=== PATIENT | male | born 1980 | race Caucasian/White ===

== ENCOUNTER 2023-09-13 17:12 | Emergency (ER) | payer OTHER, MEDICAID, SELFPAY ==
[2023-09-13 17:20] VITALS: BP 127/64; PULSE 88; RESP 18; TEMP 36.7; O2SAT 100; BMI 23.7
== END 2023-09-13 18:44 | disposition left against medical advice (07) ==
PROVIDERS: Emergency Provider Emergency Medicine
CPT/HCPCS: 99281

== ENCOUNTER 2024-09-18 11:24 | Emergency (ER) | payer OTHER, SELFPAY ==
[2024-09-18 11:26] VITALS: BP 118/77; PULSE 68; RESP 16; TEMP 36.2; O2SAT 100; BMI 31.1
--- NOTE | 2024-09-18 11:32 | ED_ITS ---
HPI - Eye Problem <Yeny Aguilar PA-C - Last Filed: 09/18/24 12:34> General Chief complaint: Eye Problems Stated complaint: foreign object in eye Time Seen by Provider: 09/18/24 11:31 History of Present Illness HPI Narrative: 44-year-old male presents this morning for right eye discomfort. He was chopping wood with a hatchet when a piece of wood flew up into his face striking his right eye. He closed his eyes quickly but he felt it still impact of the ey e. He does not wear contact lenses or prescription glasses, he reports keeping the eye closed while driving to get here. He is experiencing some mild discomfort. He is denying any other injuries, no headache, no known sensitivity to light, no prior history of any eye disease, he believes his tetanus is up-to-date as of a couple years ago when he cut his finger. All other systems are reviewed and are negative. Related Data Previous Rx's Medication Instructions Recorded erythromycin 5 mg/gram (0.5 %) eye 0.5 inch EYE-RIGHT QID 5 days #3.5 09/18/24 ointment grams Allergies Allergy/AdvReac Type Severity Reaction Status Date / Time No Known Drug Allergies Allergy Verified 09/13/23 17:20 Review of Systems <Yeny Aguilar PA-C - Last Filed: 09/18/24 12:34> Review of Systems Narrative: All other systems reviewed and are negative. Patient History <Yeny Aguilar PA-C - Last Filed: 09/18/24 12:34> Social History Smoking Status: Current every day smoker Smoking Status: Current every day smoker tobacco type: cigarettes alcohol intake frequency: other Exam <Yeny Aguilar PA-C - Last Filed: 09/18/24 12:34> Initial Vital Signs Initial Vital Signs: Vital Signs Temperature 97.1 F L 09/18/24 11:26 Pulse Rate 68 09/18/24 11:26 Respiratory Rate 16 09/18/24 11:26 Blood Pressure 118/77 09/18/24 11:26 Pulse Oximetry 100 09/18/24 11:26 Oxygen Delivery Method Room Air 09/18/24 11:26 Vital signs reviewed and are normal. Const General: cooperative, comfortable, well developed and No acute distress Other: Alert and oriented x4, pleasantly conversing. [facility] Head: normocephalic, No hematoma, No laceration, No scalp tenderness, No periorbital ecchymosis and other (Mild maroon discoloration inferior to his right lower eyelid. ) Nose: external nose normal Mouth: oral mucosae normal, lip normal and tongue normal [facility] Other: No focal tenderness periorbitally, no bony tenderness, mild tenderness at the site of his lower eyelid, no guarding. Eyes Visual Ledezma: normal visual ledezma by confrontation Alignment and Position: alignment normal and position normal Periorbital: periorbital findings normal Eyelids: other (Upper lid everted, no foreign body, no trauma, tissues are nor mal) Conjunctivae: other (Mild injection) Cornea: fluorescein used Pupils: PERRL and normal by confrontation EOM: EOM intact bilaterally Other: Fluorescein exam reveals uptake involving sclera between 3 o'clock and 6 o'clock, large patch measuring approximately 1 cm irregularly shaped, no foreign body seen, Vicente's is negative, Slit Lamp magnification: I do not appreciate any retained foreign body, cornea appears intact, there is a faint abrasion at the base around 6 o'clock. Exam tolerated. Patient declined Allen-Pen. Neck Neck: normal visual inspection and full ROM <Kathleen Gastelum MD - Last Filed: 09/18/24 15:18> Initial Vital Signs Initial Vital Signs: Vital Signs Temperature 97.1 F L 09/18/24 11:26 Pulse Rate 68 09/18/24 11:26 Respiratory Rate 16 09/18/24 11:26 Blood Pressure 118/77 09/18/24 11:26 Pulse Oximetry 100 09/18/24 11:26 Oxygen Delivery Method Room Air 09/18/24 11:26 Course <Yeny Aguilar PA-C - Last Filed: 09/18/24 12:34> Orders Ordered: Discontinued Medications Erythromycin (Erythromycin Ophth 1 Gm Oint) 1 applic EYE-RIGHT NOW ONE Stop: 09/18/24 11:58 Last Admin: 09/18/24 12:03 Dose: 1 applic Documented By: MEE Fluorescein Sodium (Fluorescein 1 Mg Strip) 1 mg EYE-RIGHT NOW ONE Stop: 09/18/24 11:33 Last Admin: 09/18/24 11:35 Dose: 1 mg Documented By: MEE Proparacaine HCl (Proparacaine 0.5% Ophth Avis) 1 drops EYE-RIGHT NOW ONE Stop: 09/18/24 11:33 Last Admin: 09/18/24 11:35 Dose: 1 drop Documented By: MEE Vital Signs Vital signs: Vital Signs - 8 hr 09/18/24 11:26 Temperature 97.1 F L Pulse Rate 68 Respiratory Rate 16 Blood Pressure 118/77 Pulse Oximetry 100 Oxygen Delivery Method Room Air <Kathleen Gastelum MD - Last Filed: 09/18/24 15:18> Orders Ordered: Discontinued Medications Erythromycin (Erythromycin Ophth 1 Gm Oint) 1 applic EYE-RIGHT NOW ONE Stop: 09/18/24 11:58 Last Admin: 09/18/24 12:03 Dose: 1 applic Documented By: MEE Fluorescein Sodium (Fluorescein 1 Mg Strip) 1 mg EYE-RIGHT NOW ONE Stop: 09/18/24 11:33 Last Admin: 09/18/24 11:35 Dose: 1 mg Documented By: MEE Proparacaine HCl (Proparacaine 0.5% Ophth Avis) 1 drops EYE-RIGHT NOW ONE Stop: 09/18/24 11:33 Last Admin: 09/18/24 11:35 Dose: 1 drop Documented By: MEE Vital Signs Vital signs: Vital Signs - 8 hr 09/18/24 11:26 Temperature 97.1 F L Pulse Rate 68 Respiratory Rate 16 Blood Pressure 118/77 Pulse Oximetry 100 Oxygen Delivery Method Room Air MDM - Eye Problem <Yeny Aguilar PA-C - Last Filed: 09/18/24 12:34> MDM Narrative Medical decision making narrative: Extensive eye examination reveals what appears to be a superficial injury, no ulceration identified, fluorescein uptake involving about a 1 cm area the inferior eye conjunctiva with mild involvement of the cornea. He had significant relief with the proparacaine. His vision is intact. EOMs reveal no pain elicited. I have dispensed erythromycin ophthalmic ointment as pharmacies are closed this holiday. I have asked him to follow-up with an eye provider, information has been given for this. Red flag warning signs reviewed extensively, seek medical attention immediately if you have any new symptoms or any worsening symptoms. His tetanus is up-to-date. The emergency department is open 17/04. Discharge Plan Departure Patient Disposition: Home Clinical Impression: Corneal abrasion Qualifiers: Encounter type: initial encounter Laterality: right Qualified Code(s): S05.01XA - Injury of conjunctiva and corneal abrasion without foreign body, right eye, initial encounter Abrasion of conjunctiva, right Qualifiers: Encounter type: initial encounter Qualified Code(s): S05.01XA - Injury of conjunctiva and corneal abrasion without foreign body, right eye, initial encounter Contusion of face Qualifiers: Encounter type: initial encounter Qualified Code(s): S00.83XA - Contusion of other part of head, initial encounter Activity Restrictions/Additional Instructions: Please use the antibiotic ointment dispensed, 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 Please avoid touching the eye, wear sunglasses, seek medical attention if your symptoms worsen, you may take Tylenol for pain. You might develop some discoloration within the whites of your eye this is a bruise and not dangerous but if it is painful please do not hesitate to return. You can use a cold compress on the bruise on your face, and again do not hesitate to return to the emergency department if anything changes. I would like you to follow up with an orange picking supervisor of your choosing, I did list when here locally in [place] as well as [place]: [facility] [phone]. Call them in the morning and schedule a follow up appointment. You also can call in the middle the night if you have questions as they are available on-call. Prescriptions: New erythromycin 5 mg/gram (0.5 %) ointment 0.5 inch EYE-RIGHT QID 5 Days Qty: 3.5 0RF Referrals: Carlo Fabian MD [Physician] - (wood debris vs. right eye. Conjunctival and corneal abrasion. ) Miscellaneous,DoctorMD [Primary Care Provider] - Stand Alone Forms: Patient Portal/API/Survey ED Sign-out <Kathleen Gastelum MD - Last Filed: 09/18/24 15:18> Cosign ED Attending Cosignature Attestation: I was immediately available in the department for consultation throughout this patient's visit. Kathleen Gastelum MD
[2024-09-18] MEDS: PROPARACAINE 0.5% OPHTH SOL 1 DROPS EYE-RIGHT (11:35)
[2024-09-18] MEDS: FLUORESCEIN 1 MG STRIP EYE-RIGHT (11:35)
--- NOTE | 2024-09-18 11:50 | PC.NURSE ---
Provider did visual acuity at bedside. Pt eye pain/discomfort lessened with eye drop administration. Pt reports he is up to date on Tetanus immunization.
[2024-09-18] MEDS: ERYTHROMYCIN OPHTH 1 GM OINT 1 APPLIC EYE-RIGHT (12:03)
== END 2024-09-18 12:17 | disposition home or self-care (01) ==
PROVIDERS: Emergency Provider Physician Assistant Medical
DX: S05.01XA Injury of conjunctiva and corneal abrasion without foreign body, right eye, initial encounter (principal); W22.8XXA Striking against or struck by other objects, initial encounter; Y93.89 Activity, other specified
CPT/HCPCS: 99282

== ENCOUNTER 2024-12-21 21:30 | Emergency (ER) | payer OTHER, SELFPAY ==
[2024-12-21 21:32] VITALS: BP 132/74; PULSE 87; RESP 18; TEMP 36.8; O2SAT 98; BMI 23.7
--- NOTE | 2024-12-21 21:41 | DI.RAD.S_ITS ---
PROCEDURE: XR HAND LT MIN 3V INDICATIONS: cut palm of hand TECHNIQUE: 3 views of the hand(s) acquired. COMPARISON: None. FINDINGS: Bones: No fractures or dislocations. Carpal bones are normally aligned. No suspicious bony lesions. Small accessory ossicle adjacent to the ulnar styloid and distal radial ulnar joint. Soft tissues: No suspicious soft tissue calcifications. No radiopaque foreign body. IMPRESSION: No acute bony abnormality. No radiopaque foreign body. Dictated by: Jairo Barnes M.D. on 12/21/2024 at 23:44 Approved by: Jairo Barnes M.D. on 12/21/2024 at 23:46
[2024-12-21 23:40] VITALS: BP 132/81; PULSE 80; O2SAT 98
[2024-12-22] VITALS: BP 127/77; PULSE 74; O2SAT 97
--- NOTE | 2024-12-22 00:16 | ED.WOUNDLAC ---
HPI - Wound/Laceration General Chief Complaint: Wound/Laceration Stated Complaint: hand laceration Time Seen by Provider: 12/21/24 23:46 Source: patient Mode of arrival: Ambulatory History of Present Illness HPI narrative: 44-year-old gentleman no stated medical history was moving some garbage bags round stumbled fell onto the garbage bag and sustained a laceration to the lateral aspect of his palm left hand. It has a 2 cm superficial flap-like laceration. He states his last tetanus shot was in September 17. Bleeding was controlled with pressure. Related Data Previous Rx's Medication Instructions Recorded cephalexin 500 mg capsule 500 mg PO TID #15 caps 12/22/24 Allergies Allergy/AdvReac Type Severity Reaction Status Date / Time No Known Drug Allergies Allergy Verified 09/13/23 17:20 Patient History Social History Smoking Status: Current every day smoker Smoking Status: Current every day smoker tobacco type: cigarettes alcohol intake frequency: other Exam Initial Vital Signs Initial Vital Signs: Vital Signs Temperature 98.3 F 12/21/24 21:32 Pulse Rate 87 12/21/24 21:32 Respiratory Rate 18 12/21/24 21:32 Blood Pressure 132/74 12/21/24 21:32 Pulse Oximetry 98 12/21/24 21:32 Oxygen Delivery Method Room Air 12/21/24 21:32 General: Hyper alert, difficulty sitting still, quite anxious about the wound, Respiratory: Able to speak in full sentences, no obvious respiratory distress Hand: 2 cm flap like laceration lateral aspect of the left hand. Bleeding controlled with pressure. The hand itself is dirty and the bit of glass cut the hand is also dirty. Neurologic: Grossly intact no obvious asymmetries or abnormalities Psych: Slightly pressured speech, difficulty holding still, exceptionally anxious about his wound Procedures Laceration Repair Left hand: Time of procedure: 00:44 Site: hand Side (If applicable): left Size (cm): 2 Description: flap Depth: simple, single layer Local Anesthetic: lidocaine 1% Amount of anesthesia used (mL): 4 Pre-repair: wound explored, irrigated extensively and deep structures intact Skin layer closed with: nylon Skin layer suture size: 4-0 Number of sutures: 3 Technique: horizontal mattress Course Orders Ordered: ED Orders 12/21/24 21:41 XR hand LT min 3V Stat Vital Signs Vital signs: Vital Signs - 8 hr 12/21/24 21:32 12/21/24 23:40 Temperature 98.3 F Pulse Rate 87 80 Respiratory Rate 18 Blood Pressure 132/74 132/81 Pulse Oximetry 98 98 Oxygen Delivery Method Room Air MDM - Wound/Laceration MDM Narrative Medical decision making narrative: 44-year-old gentleman fell into a garbage bag he was carrying and suffered a 2 cm flap like laceration lateral aspect of the left hand. Horizontal mattress sutures are used to close the space in the center of the flap and try to reapproximate the fragile edges. Antibiotic ointment and a nonstick dressing is applied. Bleeding has been controlled. Patient had difficulty holding still for the procedure, for the anesthetic and is soon as the wound was repaired he was up pacing around the room. Dressing was applied without difficulty. He is up-to-date on his tetanus shot. Because his hand was dirty and the bit of last was dirty will recommend 5 days of Keflex. Recommended sutures coming out on or about January 02. X-ray was done did not show obvious foreign body. No underlying bony abnormalities. There has no indication for additional workup or imaging patient is safe for discharge Discharge Plan Departure Patient Disposition: Home Clinical Impression: Laceration Instructions: How to Care for a Laceration After Repair, DI for Laceration Repair Activity Restrictions/Additional Instructions: We are able to non up and then clean out the cut to the side of your hand. The bleeding was controlled with pressure. The wound itself is a rather superficial flap. There is a stitch in the center of the flap to hold it down and then 2 to try to hold the very thin edges down. Keeping the wound voiced for at least the 1st 4 or 5 days and then covered after that will help with healing overall. I would recommend antibiotic ointment and a clean dressing over the wound for the 1st 4-5 days and after that keeping the wound covered we will be helpful. I would recommend the stitches come out on or about January 02. If you have increasing pain, redness drainage or new findings for around the wound, does need to be re-evaluated Because your hand and the glass were both somewhat dirty I am going to recommend 5 days of antibiotics, I have given you a written prescription for cephalexin. The wound was irrigated extensively in the emergency department to try and prevent infection as well Using 400 mg of ibuprofen (2 [id number] pills) and 1 Tylenol every 6 hours can be very helpful in controlling pain. If you find that you are getting worse or develop any new symptoms, please feel free to return to the emergency department for further evaluation. Prescriptions: New cephalexin 500 mg capsule 500 mg PO TID Qty: 15 0RF Referrals: Miscellaneous,Doctor, MD [Primary Care Provider] - Stand Alone Forms: Patient Portal/API/Survey
[2024-12-22] MEDS: BACITRACIN OINT 0.9 GM PCKT 1 APPLIC TOP (00:50)
== END 2024-12-22 00:57 | disposition home or self-care (01) ==
PROVIDERS: Emergency Provider Emergency Medicine
DX: S61.412A Laceration without foreign body of left hand, initial encounter (principal); W26.9XXA Contact with unspecified sharp object(s), initial encounter
CPT/HCPCS: 12001; 73130; 99282; 99283

== ENCOUNTER 2025-05-31 19:08 | Emergency (ER) | payer OTHER, SELFPAY ==
[2025-05-31 19:15] VITALS: BP 133/66; PULSE 75; RESP 16; TEMP 36.6; O2SAT 99; BMI 22.3
--- NOTE | 2025-05-31 20:31 | ED.WOUNDLAC ---
HPI - Wound/Laceration General Chief Complaint: Wound/Laceration Stated Complaint: Lt hand laceration Time Seen by Provider: 05/31/25 20:31 Source: patient Mode of arrival: Ambulatory History of Present Illness HPI narrative: 45-year-old male no pertinent past medical history presents for hand laceration, states he was opening a package with a knife when it slipped cutting his 2nd digit on his left hand, not on any blood thinners, denies any other injuries. Related Data Previous Rx's ?Medication ?Instructions ?Recorded cephalexin 500 mg capsule 500 mg PO Q6H 5 days #20 caps 05/31/25 Allergies Allergy/AdvReac Type Severity Reaction Status Date / Time No Known Drug Allergies Allergy Verified 05/21/25 23:05 Review of Systems Review of Systems Narrative: General: Denies fever, chills, weight loss HEENT: Denies headache, eye drainage, eye irritation, head trauma, sore throat, voice change Cardiovascular: Denies any chest pain, palpitations, tachycardia Respiratory: Denies any shortness of breath, cough, wheeze, stridor GI/: Denies any abdominal pain, nausea, vomiting, diarrhea, bright red blood per rectum, melanotic stools, urinary frequency, urinary retention, dysuria, hematuria MSK: Laceration to left 2nd digit Skin: Denies any rashes, lesions, discoloration Neuro: Denies any headache, lightheadedness, dizziness, fainting, weakness Psych: Denies SI/HI Patient History tobacco type: cigarettes alcohol intake frequency: other Exam Narrative Exam Narrative: General: Cooperative, well-developed, not in acute distress HEENT: Normocephalic, atraumatic, PERRLA, normal sclera, eyelids normal Neck: Active full range of motion, atraumatic Chest: Normal to inspection, negative crepitus, no overlying erythema ecchymosis Respiratory: Normal respiratory effort, not in acute respiratory distress, clear to auscultation bilaterally negative cough, wheeze, tachypnea, rhonchi, rales Cardiology: Regular rate rhythm negative gallop, murmur, rubs GI/: No tenderness to palpation, soft, non rigid, normal to inspection, exam deferred MSK: Full active range of motion in all 4 extremities, atraumatic, no tenderness to palpation of any bony prominences Skin: Patient with a 1 cm laceration to the lateral aspect of the 2nd finger not actively bleeding superficial Neuro: Alert awake oriented x3, moves all 4 extremities spontaneously, cranial nerves intact, able to answer all questions appropriately follows commands appropriately Psych: Cooperative, negative suicidal or homicidal ideations Initial Vital Signs Initial Vital Signs: Vital Signs Temperature 97.8 F 05/31/25 19:15 Pulse Rate 75 05/31/25 19:15 Respiratory Rate 16 05/31/25 19:15 Blood Pressure 133/66 05/31/25 19:15 Pulse Oximetry 99 05/31/25 19:15 Oxygen Delivery Method Room Air 05/31/25 19:15 Procedures Laceration Repair Laceration 1: Time of procedure: 20:51 Site: hand Side (If applicable): left Size (cm): 1 Description: linear Depth: simple, single layer Local Anesthetic: lidocaine 1% Amount of anesthesia used (mL): 3 Pre-repair: wound explored, irrigated extensively and deep structures intact Skin layer closed with: other (Ethilon) Skin layer suture size: 4-0 Number of sutures: 4 Technique: simple, interrupted Course Vital Signs Vital signs: Vital Signs - 8 hr 05/31/25 19:15 Temperature 97.8 F Pulse Rate 75 Respiratory Rate 16 Blood Pressure 133/66 Pulse Oximetry 99 Oxygen Delivery Method Room Air MDM - Wound/Laceration MDM Narrative Medical decision making narrative: Patient is a 45-year-old male who presents for laceration to his left index finger states he was using a pocket knife to open a box cut the lateral aspect of his left index finger patient is right-handed, up-to-date to tetanus, on exam very superficial no involvement of bone and/or tendon, he is neurovascularly intact no indication for imaging, patient had laceration repair performed at bedside, 4 sutures were placed, he will be started on her oral antibiotics for prophylaxis he verbalized understanding and strict return precautions and being discharged home with outpatient follow up Discharge Plan Departure Patient Disposition: Home Clinical Impression: Finger laceration Instructions: DI for Laceration Repair Activity Restrictions/Additional Instructions: Please follow up with your primary care doctor, you have 4 sutures that need to be removed in a proximally 1 week Please read the discharge instructions sheet carefully and bring all papers to all doctor follow-up visits, as it may contain information that your doctor may want to see. Disease processes change and evolve, if your symptoms worsen or if you develop any new symptoms that are concerning to you please return for evaluation. Your evaluation today does not show any evidence of any life-threatening/serious illnesses requiring admission to the hospital or surgery. Please follow-up with your doctor for re-evaluation in approximately 1 day. Seek immediate medical attention for any worrisome symptoms. *If you do not have a primary care provider please contact the [facility] Resource line at [phone]. They will ask some questions about your medical history and help get you set up with a doctor in the community. Prescriptions: New cephalexin 500 mg capsule 500 mg PO Q6H 5 Days Qty: 20 0RF Referrals: Miscellaneous,Doctor, [Primary Care Provider, Medical] Stand Alone Forms: Patient Portal/API
[2025-05-31 21:06] VITALS: BP 127/81; PULSE 75; RESP 18; O2SAT 96
== END 2025-05-31 21:08 | disposition home or self-care (01) ==
PROVIDERS: Emergency Provider Student in an Organized Health Care Education/Training Program
DX: S61.211A Laceration without foreign body of left index finger without damage to nail, initial encounter (principal); W26.0XXA Contact with knife, initial encounter
CPT/HCPCS: 12001; 99283